=== PATIENT | female | born 1990 | race African-American/Black ===

== ENCOUNTER 2016-12-27 20:02 | Inpatient (IN) ==
[2016-12-27] MEDS ORDERED: AMBIEN PO PRN (20:19)
[2016-12-27] MEDS ORDERED: STADOL IV PRN ×3 (20:19)
[2016-12-27] MEDS ORDERED: REGLAN PO ONE (20:19)
[2016-12-27] MEDS ORDERED: TYLENOL PO PRN (20:19)
[2016-12-27] MEDS ORDERED: PEPCID PO ONE (20:19)
[2016-12-27] MEDS ORDERED: LR 1,000 ML IV ONE (20:19)
[2016-12-27] MEDS ORDERED: PEPCID PO PRN (20:19)
[2016-12-27] MEDS ORDERED: BRETHINE SUBQ PRN (20:19)
[2016-12-27] MEDS ORDERED: KEFZOL 1 GM/D5W 1 GM/50 ML IVPB IV PRN (20:19)
[2016-12-27] MEDS ORDERED: PEPCID IV PRN (20:19)
[2016-12-27] MEDS ORDERED: ZOFRAN IV PRN (20:19)
[2016-12-27] MEDS ORDERED: CYTOTEC PO ONE (22:00)
[2016-12-27 22:26] LABS: MANUAL DIFF NEEDED? NO
[2016-12-27 22:51] LABS: BASO% 0.2 % (0.0-0.8); EOS% 0.8 % (0.0-10.0); HEMATOCRIT 34.1 % (37.0-47.0); HEMOGLOBIN 11.7 g/dL (12.0-16.0); IMM GRAN# 0.04 X1000 (0.0-0.04); IMM GRAN% 0.3 % (0.0-0.5); LYMPH# 2.12 X1000 (1.2-3.4); LYMPH% 17.8 % (20.5-51.1); MCH 32.5 PG (27-31); MCHC 34.3 g/dL (33-37); MCV 94.7 FL (81-99); MONO# 1.77 X1000 (0.11-0.59); MONO% 14.9 % (1.7-9.3); MPV 12.6 FL (7.4-10.4); PLT 210 X1000 (130-400)
[2016-12-28] MEDS ORDERED: CYTOTEC PO SCH (02:00)
[2016-12-28] MEDS ORDERED: PITOCIN 30 UNITS/LR 30 UNITS/500 ML IV.SOLN IV SCH (06:00)
[2016-12-28] MEDS ORDERED: MINERAL OIL ONE (07:01)
[2016-12-28] MEDS ORDERED: XYLOCAINE-MPF 1% INJ ONE ×2 (07:02→08:15)
[2016-12-28] MEDS ORDERED: FENTANYL-BUPIV-NS 2 MCG-0.1% 200 ML EPIDURAL PRN (08:12)
[2016-12-28 09:21] LABS: URINE SOURCE VOIDED
[2016-12-28 09:27] LABS: UR AMPHETAMINES QUAL NONE DETECTED (NONE DETECT); UR BARBITUATES QUAL NONE DETECTED (NONE DETECT); UR BENZODIAZEPIN QUAL NONE DETECTED (NONE DETECT); UR CANNABINOIDS QUAL NONE DETECTED (NONE DETECT); UR COCAINE QUAL NONE DETECTED (NONE DETECT); UR MDMA QUAL NONE DETECTED (NONE DETECT); UR METHADONE QUAL NONE DETECTED (NONE DETECT); UR METHAMPHETAMINE QUAL NONE DETECTED (NONE DETECT); UR OPIATES QUAL NONE DETECTED (NONE DETECT); UR OXYCODONE QUAL NONE DETECTED (NONE DETECT); UR PCP QUAL NONE DETECTED (NONE DETECT); UR TCA QUAL NONE DETECTED (NONE DETECT)
[2016-12-28 09:28] LABS: BILIRUBIN URINE NEGATIVE (NEGATIVE); BLOOD URINE NEGATIVE (NEGATIVE); CLARITY CLEAR (CLEAR); COLOR YELLOW; GLUCOSE URINE NEGATIVE (NEGATIVE); LEUKOCYTES URINE 1+ (NEGATIVE); NITRITE URINE NEGATIVE (NEGATIVE); PROTEIN URINE TRACE mg/dL (NEGATIVE); UROBILINOGEN URINE 1+(1 mg/dL)
[2016-12-28] MEDS ORDERED: SALINE LOCK IV FLUID XX ONE (15:00)
[2016-12-29] MEDS ORDERED: CYTOTEC PO ONE (00:01)
[2016-12-29] MEDS ORDERED: PITOCIN 30 UNITS/LR 30 UNITS/500 ML IV.SOLN IV SCH (05:28)
[2016-12-29] MEDS: LR 1,000 ML IV SCH ×2 (06:16→08:27)
[2016-12-29] MEDS ORDERED: XYLOCAINE-MPF 1% INJ ONE (07:45)
[2016-12-29] MEDS ORDERED: AMBIEN PO PRN (10:43)
[2016-12-29] MEDS ORDERED: CYTOTEC PO PRN (10:43)
[2016-12-29] MEDS ORDERED: BOOSTRIX VACCINE IM ONE (10:43)
[2016-12-29] MEDS ORDERED: M-M-R II VACCINE SUBQ ONE (10:43)
[2016-12-29] MEDS ORDERED: PERI MEDS (DERMOPLAST/NUPERCAINAL/TUCKS) MISC PRN (10:43)
[2016-12-29] MEDS ORDERED: PITOCIN IM PRN (10:43)
[2016-12-29] MEDS ORDERED: NORCO-10 PO PRN (10:43)
[2016-12-29] MEDS ORDERED: PITOCIN 30 UNITS/LR 30 UNITS/500 ML IV.SOLN IV ONE (10:43)
[2016-12-29] MEDS ORDERED: PITOCIN 20 UNITS/LR 20 UNITS/1,000 ML IV.SOLN IV SCH (10:43)
[2016-12-29] MEDS ORDERED: BENADRYL IV PRN (10:43)
[2016-12-29] MEDS ORDERED: NORCO-5 PO PRN (10:43)
[2016-12-29] MEDS ORDERED: XYLOCAINE-MPF 1% INJ PRN (10:43)
[2016-12-29] MEDS ORDERED: HYDROXYZINE PO PRN (10:43)
[2016-12-29] MEDS ORDERED: BENADRYL PO PRN (10:43)
[2016-12-29] MEDS ORDERED: HYDROXYZINE IM PRN (10:43)
[2016-12-29] MEDS ORDERED: MINERAL OIL PO PRN (10:43)
--- NOTE | 2016-12-29 11:06 | OPERATIVE NOTE ---
PROCEDURE DATE: 12/29/2016 PREOP DELIVERY DIAGNOSES: 1. Intrauterine at 39 and 5. 2. Rh-negative blood type. 3. Rubella nonimmune. POST DELIVERY DIAGNOSES: 1. Intrauterine at 39 and 5. 2. Rh-negative blood type. 3. Rubella nonimmune. PROCEDURE: Vaginal delivery. PHYSICIAN: Dr. Jay Liz. ANESTHESIA: Epidural with Dr. Mendieta. FINDINGS: Viable female , 7 pounds 8 ounces. Do not have Apgars. Placenta was 3 vessels. Cord with 3 vessels. Placenta was spontaneous and intact. There are no lacerations or tears. All counts were correct. ESTIMATED BLOOD LOSS: 100 mL. DESCRIPTION OF PROCEDURE IN DETAIL: Please refer to Ms. Gracia's records. She presented in the first trimester, known to be Rh negative, Rubella nonimmune. Did not have any complications of the . Was admitted for induction with an unfavorable cervix. Wednesday night she received Cytotec and then Pitocin throughout the day yesterday with no cervical change. She was rested overnight, given a dose of Cytotec at 1 this morning, then started on Pitocin and artificially ruptured this morning and reached complete cervical dilatation and began pushing. Bed was broken down. She delivers a viable female , occiput anterior, over an intact perineum. Once head delivered, shoulders and the body delivered without difficulty. The was placed on mother's abdomen. Cord doubly clamped and cut. Care of taken over by nursery personnel. Cord blood was obtained. Cord examined and found to be 3 vessels. Gentle traction resulted in delivery of the placenta after approximately 3 minutes. It was inspected and found to be intact. There was an inspection of the perineum and vagina that did not reveal any lacerations or tears. Vaginal sweep did not reveal any foreign material or blood clots. Estimated blood loss 100 mL. Again, all counts correct. Expect routine . cc: MD Dariel Austin MD
[2016-12-29] MEDS ORDERED: METHERGINE IM ONE (13:12)
[2016-12-29] MEDS ORDERED: METHERGINE ONE (13:14)
[2016-12-29] MEDS: PERICOLACE PO SCH (22:55)
[2016-12-29] MEDS: MOTRIN PO PRN (22:55)
[2016-12-30 06:32] LABS: MANUAL DIFF NEEDED? NO
[2016-12-30 06:37] LABS: BASO% 0.1 % (0.0-0.8); EOS# 0.15 X1000 (0.0-0.7); EOS% 1.1 % (0.0-10.0); HEMATOCRIT 32.6 % (37.0-47.0); HEMOGLOBIN 10.9 g/dL (12.0-16.0); IMM GRAN# 0.03 X1000 (0.0-0.04); IMM GRAN% 0.2 % (0.0-0.5); LYMPH# 2.95 X1000 (1.2-3.4); LYMPH% 20.7 % (20.5-51.1); MCH 31.9 PG (27-31); MCHC 33.4 g/dL (33-37); MCV 95.3 FL (81-99); MONO# 2.09 X1000 (0.11-0.59); MONO% 14.7 % (1.7-9.3); MPV 12.4 FL (7.4-10.4); NEUT% 63.2 % (42.2-75.2); PLT 174 X1000 (130-400); RBC 3.42 XMIL (4.2-5.4)
[2016-12-30] MEDS: PRECARE PO SCH (08:28)
[2016-12-30] MEDS: MOTRIN PO PRN (18:19)
[2016-12-30] MEDS: PERICOLACE PO SCH (20:48)
[2016-12-31 08:46] VITALS: BP 147/86
[2016-12-31] MEDS: PRECARE PO SCH (13:59)
== END 2016-12-31 13:20 | disposition home or self-care (01) ==
LOC: P.LD 20:02 → P.WC 12-29 14:27
PROVIDERS: ADMIT Obstetrics & Gynecology; ATTEND Obstetrics & Gynecology